=== PATIENT | female | born 1960 | race American Indian/Alaskan Native ===

== ENCOUNTER 2017-08-25 08:24 | Emergency (ER) | payer SELFPAY ==
[2017-08-25 09:09] LABS: Hematocrit 41.7 % (30.3-42.9); Mean Corpuscular HGB Conc 34 % (30-34); Mean Corpuscular Hemoglobin 30 pg (28-32); Mean Corpuscular Volume 90 fl (79-97); Platelet Count 152 K/mm3 (140-440); Red Blood Count 4.64 M/mm3 (3.65-5.03); Red Cell Distribution Width 14.7 % (13.2-15.2)
[2017-08-25 09:11] LABS: Alanine Aminotransferase 21 units/L (7-56); Albumin 3.9 g/dL (3.9-5); BUN/Creatinine Ratio 32; Blood Urea Nitrogen 32 mg/dL (7-17); Calcium 9.7 mg/dL (8.4-10.2); Hemolysis Index 6
[2017-08-25 10:05] VITALS: BP 146/84
--- NOTE | 2017-08-25 10:27 | Emergency Department Report ---
ED General Adult HPI - General Chief complaint: Weakness Stated complaint: GENERAL WEAKNESS Time Seen by Provider: 08/25/17 10:15 Source: patient, family Mode of arrival: Wheelchair Limitations: Language Barrier - History of Present Illness Initial comments: Patient is 56 years old female with past medical history of hypertension, diabetes and hyperlipidemia. Patient presented to the ER with her daughter complaining of generalized weakness for the last 3 months. Patient stated that her symptoms get worse in the last few days especially this morning. Patient is being followed very closely by her primary care physician Dr Corral. She stated that she recently had a blood work done that showed high potassium and she was given lactulose for that. Patient live with her daughter for the last 5 years. Patient denied any headache, neck pain, focal weakness, numbness or tingling sensation. No bowel or bladder incontinence. Patient denied any chest pain, abdominal pain or pelvic pain. She is complaining of generalized muscle pain. Patient denied any history of psychiatric problems before. - Related Data Previous Rx's Medication Instructions Recorded Last Taken Type Famotidine [Pepcid] 10 mg PO BID #30 tablet 04/11/13 Unknown Rx HYDROcodone/APAP 5-325 [Randle 1 - 2 each PO Q4-6H PRN #12 tablet 10/07/14 Unknown Rx 5-325 mg TAB] Promethazine [Phenergan TAB] 25 mg PO Q6H PRN #20 tablet 10/07/14 Unknown Rx Multivit-Min/Iron/Folic/Lutein 1 each PO DAILY #120 tablet 08/25/17 Unknown Rx [Centrum Silver Women Tablet] Ondansetron [Zofran Odt] 4 mg PO Q8HR PRN #14 tab.rapdis 08/25/17 Unknown Rx traMADol [Ultram] 50 mg PO Q6HR PRN #14 tablet 08/25/17 Unknown Rx Allergies Allergy/AdvReac Type Severity Reaction Status Date / Time No Known Allergies Allergy Verified 10/06/14 19:18 ED Review of Systems ROS: Stated complaint: GENERAL WEAKNESS Other details as noted in HPI Comment: All other systems reviewed and negative Constitutional: denies: chills, fever Respiratory: denies: cough, orthopnea, shortness of breath Cardiovascular: denies: chest pain, palpitations, dyspnea on exertion, orthopnea Gastrointestinal: denies: abdominal pain, nausea, vomiting, constipation, hematemesis, melena, hematochezia Genitourinary: denies: urgency, dysuria, frequency, hematuria, discharge Neurological: weakness (generalized). denies: headache, numbness, paresthesias , confusion, abnormal gait, vertigo ED Past Medical Hx - Past Medical History Hx Hypertension: Yes Hx Diabetes: Yes Hx GERD: Yes Additional medical history: high cholesterol - Social History Smoking Status: Never Smoker Substance Use Type: None - Medications Home Medications: Home Medications Medication Instructions Recorded Confirmed Last Taken Type Famotidine [Pepcid] 10 mg PO BID #30 tablet 04/11/13 Unknown Rx HYDROcodone/APAP 5-325 [Randle 1 - 2 each PO Q4-6H PRN #12 tablet 10/07/14 Unknown Rx 5-325 mg TAB] Promethazine [Phenergan TAB] 25 mg PO Q6H PRN #20 tablet 10/07/14 Unknown Rx Multivit-Min/Iron/Folic/Lutein 1 each PO DAILY #120 tablet 08/25/17 Unknown Rx [Centrum Silver Women Tablet] Ondansetron [Zofran Odt] 4 mg PO Q8HR PRN #14 tab.rapdis 08/25/17 Unknown Rx traMADol [Ultram] 50 mg PO Q6HR PRN #14 tablet 08/25/17 Unknown Rx ED Physical Exam - General Limitations: Language Barrier General appearance: alert, in no apparent distress - Head Head exam: Present: atraumatic, normocephalic, normal inspection - Eye Eye exam: Present: normal appearance - ENT ENT exam: Present: normal exam, normal orophraynx, mucous membranes moist, normal external ear exam - Neck Neck exam: Present: normal inspection, full ROM. Absent: tenderness, meningismus, lymphadenopathy, thyromegaly - Respiratory Respiratory exam: Present: normal lung sounds bilaterally. Absent: respiratory distress, wheezes, rales, rhonchi, stridor, accessory muscle use, decreased breath sounds, prolonged expiratory - Cardiovascular Cardiovascular Exam: Present: regular rate, normal rhythm, normal heart sounds - GI/Abdominal GI/Abdominal exam: Present: soft, normal bowel sounds. Absent: distended, tenderness, guarding, rebound, rigid, diminished bowel sounds, organomegaly, mass, bruit, pulsatile mass, hernia - Extremities Exam Extremities exam: Present: normal inspection, full ROM, normal capillary refill. Absent: tenderness, pedal edema, joint swelling, calf tenderness - Back Exam Back exam: Present: normal inspection, full ROM. Absent: tenderness, CVA tenderness (R), CVA tenderness (L), muscle spasm, paraspinal tenderness, vertebral tenderness, rash noted - Neurological Exam Neurological exam: Present: alert, oriented X3, CN II-XII intact, normal gait, motor sensory deficit, reflexes normal. Absent: abnormal gait - Skin Skin exam: Present: warm, intact, normal color ED Course Vital Signs 08/25/17 08/25/17 08/25/17 08:33 09:24 10:03 Temperature 97.9 F Pulse Rate 81 72 Respiratory 16 14 16 Rate Blood Pressure 151/81 Blood Pressure 146/84 [Left] O2 Sat by Pulse 99 98 Oximetry - Reevaluation(s) Reevaluation #1: 08/25/17 12:22 Patient remained stable with normal acute complaints except for generalized weakness. ED Medical Decision Making - Lab Data Result diagrams: 08/25/17 08:46 08/25/17 08:46 - EKG Data -: EKG Interpreted by In EKG shows normal: sinus rhythm Rate: normal - EKG Data Interpretation: no acute changes - Radiology Data Radiology results: report reviewed CT brain showed no acute finding. - Medical Decision Making Patient is 56 years old with history of hypertension and diabetes. Patient presented to the ER complaining of generalized weakness for the last 3 months as well as for the last 5-6 days. Daughter stated that she is having a cataract surgery in the next few days. She stated that she is worried about that. Patient is still denying any headache, focal weakness or numbness or tingling sensation. CT brain is negative for acute finding. EKG is unremarkable with a negative troponin. Electrolytes are normal including potassium 4.2. Patient blood sugar is 126. I strongly advised the patient to follow up with primary care physician in the next 2-3 days and prescribe her some medication for joint pain and advised to follow up with feed preparation operator in the next 5-7 days. Critical care attestation.: If time is entered above; I have spent that time in minutes in the direct care of this critically ill patient, excluding procedure time. ED Disposition Clinical Impression: Generalized weakness Disposition: DC-01 TO HOME OR SELFCARE Is pt being admited?: No Condition: Stable Instructions: Weakness (ED) Prescriptions: Multivit-Min/Iron/Folic/Lutein [Centrum Silver Women Tablet] 1 each PO DAILY # 120 tablet Ondansetron [Zofran Odt] 4 mg PO Q8HR PRN #14 tab.rapdis PRN Reason: Nausea And Vomiting traMADol [Ultram] 50 mg PO Q6HR PRN #14 tablet PRN Reason: Pain Referrals: PRIMARY CARE, [Primary Care Provider] - 3-5 Days
[2017-08-25 11:14] LABS: Bacteria,Urine 1+ /HPF (Negative); Bilirubin,Urine NEG (Negative); Blood,Urine NEG (Negative); Color,Urine Yellow (Yellow); Mucus,Urine FEW /HPF; Protein,Urine <15 mg/dL mg/dL (Negative); Urobilinogen,Urine < 2.0 mg/dL (<2.0)
--- NOTE | 2017-08-25 11:14 | Cat Scan Report ---
FINAL REPORT EXAM: CT HEAD/BRAIN WO CON HISTORY: weakness TECHNIQUE: Axial images were performed from the vertex to the skullbase. Total exam DLP 805.42 mGy-cm Comparison: None FINDINGS: There is minimal atrophy. Conjugate gaze. Orbital cones and apices are unremarkable. There is normal hernandez-white differentiation without midline shift or mass effect. There are no intraparenchymal blood products or extra-axial fluid collections. There are completed left basal ganglia lacunar infarcts. There is mild ethmoid and left sphenoid sinus mucosal thickening. The remaining imaged paranasal sinuses are clear. There is no displaced calvarial fracture. IMPRESSION: No acute transcortical infarct, bleed, or mass identified. Mild sinus disease. Mild atrophy. Completed left basal ganglia lacunar infarcts.
[2017-08-25 11:31] LABS: Free T4 (Free Thyroxine) 1.25 ng/dL (0.76-1.46)
== END 2017-08-25 12:43 | disposition home or self-care (01) ==
LOC: ED 08:24
DX: R53.1 Weakness (principal); M79.1 Myalgia; I10 Essential (primary) hypertension; E11.9 Type 2 diabetes mellitus without complications; K21.9 Gastro-esophageal reflux disease without esophagitis; E78.00 Pure hypercholesterolemia, unspecified; Z79.899 Other long term (current) drug therapy
CPT/HCPCS: 36415; 70450; 80053; 81001; 84439; 84443; 84484; 85027; 93005; 93010